=== PATIENT | male | born 1975 | race Caucasian/White ===

== ENCOUNTER → 2017-08-08 09:06 | Outpatient (CLI) | payer BC, SELFPAY ==
[2017-08-08 11:17] LABS: ALB/GLOB Ratio 1.1 RATIO (0.9-2.4); AST(SGOT) 24 U/L (15-37); Alanine Aminotransfer ALT/SGPT 52 U/L (16-61); Albumin, Serum 4.2 g/dL (3.2-5.0); Alkaline Phosphatase 59 U/L (45-117); Anion Gap 8 (5-15); BUN 16 mg/dL (7-18); BUN/Creat Ratio 15.7 RATIO (10-20); Calcium,Total 8.7 mg/dL (8.5-10.1); Chloride 101 mmol/L (98-107); Cholesterol 137 mg/dL (200); Creatinine, Serum 1.02 mg/dL (0.70-1.30); EST Glomerular Filtration Rate 86 mL/min (>60); Est Glom Filt Rate - Afr Amer 103 mL/min (>60); Globulin 3.8 g/dL (2.2-4.2); Glucose 169 mg/dL (74-106); High Density Lipoprotein 32 mg/dL; Potassium 3.8 mmol/L (3.5-5.1); Sodium Level 137 mmol/L (136-145); Thyroid Stim Hormone (TSH) 2.18 uIU/mL (0.358-3.74); Triglycerides 106 mg/dL; Very Low Density Lipoprotein 21 mg/dL (5-40)
== END ==
PROVIDERS: Visit Provider Family Medicine
DX: E11.9 Type 2 diabetes mellitus without complications (principal)
CPT/HCPCS: 36415; 80053; 80061; 84403; 84443

== ENCOUNTER → 2018-09-03 07:39 | Outpatient (CLI) | payer BC, SELFPAY ==
[2018-09-03 10:17] LABS: ALB/GLOB Ratio 1.1 RATIO (0.9-2.4); AST(SGOT) 24 U/L (15-37); Alanine Aminotransfer ALT/SGPT 48 U/L (16-61); Alkaline Phosphatase 51 U/L (45-117); Anion Gap 7 (5-15); BUN 10 mg/dL (7-18); BUN/Creat Ratio 10.7 RATIO (10-20); Calcium,Total 8.2 mg/dL (8.5-10.1); Chloride 105 mmol/L (98-107); Cholesterol 124 mg/dL (200); Creatinine, Serum 0.93 mg/dL (0.70-1.30); EST Glomerular Filtration Rate 94 mL/min (>60); Est Glom Filt Rate - Afr Amer 114 mL/min (>60); Globulin 3.5 g/dL (2.2-4.2); Glucose 135 mg/dL (74-106); High Density Lipoprotein 35 mg/dL; Potassium 3.8 mmol/L (3.5-5.1); Protein, Total 7.5 g/dL (6.4-8.2); Sodium Level 137 mmol/L (136-145); Thyroid Stim Hormone (TSH) 2.04 uIU/mL (0.358-3.74); Triglycerides 127 mg/dL; Very Low Density Lipoprotein 25 mg/dL (5-40)
== END ==
PROVIDERS: Family Provider Family Medicine; PCP Family Medicine; Referring Provider Family Medicine; Visit Provider Family Medicine
DX: E11.9 Type 2 diabetes mellitus without complications (principal)
CPT/HCPCS: 36415; 80053; 80061; 84403; 84443

== ENCOUNTER → 2020-04-05 | Outpatient (CLI) | payer BC, SELFPAY ==
[2020-04-05 10:42] LABS: AST(SGOT) 25 U/L (15-37); Alanine Aminotransfer ALT/SGPT 54 U/L (16-61); Albumin, Serum 3.9 g/dL (3.2-5.0); Alkaline Phosphatase 75 U/L (45-117); Anion Gap 3 (5-15); BUN 12 mg/dL (7-18); BUN/Creat Ratio 12.9 RATIO (10-20); Chloride 107 mmol/L (98-107); Cholesterol 202 mg/dL (200); Creatinine, Serum 0.93 mg/dL (0.70-1.30); EST Glomerular Filtration Rate 94 mL/min (>60); Est Glom Filt Rate - Afr Amer 114 mL/min (>60); Globulin 3.8 g/dL (2.2-4.2); Glucose 236 mg/dL (74-106); High Density Lipoprotein 43 mg/dL; Potassium 4.2 mmol/L (3.5-5.1); Protein, Total 7.7 g/dL (6.4-8.2); Sodium Level 140 mmol/L (136-145); Thyroid Stim Hormone (TSH) 2.81 uIU/mL (0.358-3.74); Triglycerides 156 mg/dL; Very Low Density Lipoprotein 31 mg/dL (5-40)
== END | disposition home or self-care (01) ==
LOC: MFPLAB 08:46
PROVIDERS: PCP Family Medicine; Referring Provider Family Medicine; Visit Provider Family Medicine
DX: E11.9 Type 2 diabetes mellitus without complications (principal)
CPT/HCPCS: 36415; 80053; 80061; 84403; 84443

== ENCOUNTER 2020-07-27 12:03 | Outpatient (CLI) | payer BC, SELFPAY ==
[2020-07-27 12:35] VITALS: BP 119/72; PULSE 83; RESP 16; TEMP 36.6; O2SAT 94; BMI 29.2
[2020-07-27 13:40] VITALS: BP 125/70; PULSE 83; RESP 16; TEMP 36.8; O2SAT 96
[2020-07-27 14:10] VITALS: BP 114/76; PULSE 79; RESP 16; O2SAT 96
[2020-07-27 14:30] VITALS: BP 105/71; PULSE 77; RESP 16; O2SAT 98
[2020-07-27 15:00] VITALS: BP 108/70; PULSE 81; RESP 16; TEMP 36.4; O2SAT 95
[2020-07-27 15:30] VITALS: BP 121/69; PULSE 83; RESP 16; TEMP 36.5; O2SAT 96
== END 2020-07-27 15:34 | disposition home or self-care (01) ==
LOC: MS2OUT 12:03 → MS2 12:04
PROVIDERS: PCP Family Medicine; Referring Provider Nurse Practitioner Acute Care; Visit Provider Nurse Practitioner Acute Care
DX: U07.1 COVID-19 (principal)
CPT/HCPCS: J7050; M0239; Q0245

== ENCOUNTER → 2021-12-12 | Outpatient (CLI) | payer BC, SELFPAY ==
[2021-12-12 10:15] LABS: ALB/GLOB Ratio 1.3 RATIO (0.9-2.4); AST(SGOT) 29 U/L (15-37); Alanine Aminotransfer ALT/SGPT 51 U/L (16-61); Albumin, Serum 4.4 g/dL (3.2-5.0); Alkaline Phosphatase 54 U/L (45-117); Anion Gap 6 (5-15); BUN 17 mg/dL (7-18); BUN/Creat Ratio 17.6 RATIO (10-20); Calcium,Total 9.4 mg/dL (8.5-10.1); Chloride 102 mmol/L (98-107); Cholesterol 157 mg/dL (200); Creatinine, Serum 0.97 mg/dL (0.70-1.30); EST Glomerular Filtration Rate 89 mL/min (>60); Est Glom Filt Rate - Afr Amer 108 mL/min (>60); Globulin 3.5 g/dL (2.2-4.2); Glucose 133 mg/dL (74-106); High Density Lipoprotein 38 mg/dL; Potassium 4.5 mmol/L (3.5-5.1); Protein, Total 7.9 g/dL (6.4-8.2); Sodium Level 136 mmol/L (136-145); Thyroid Stim Hormone (TSH) 2.04 uIU/mL (0.358-3.74); Triglycerides 137 mg/dL; Very Low Density Lipoprotein 27 mg/dL (5-40)
== END | disposition home or self-care (01) ==
LOC: MFPLAB 08:26
PROVIDERS: PCP Family Medicine; Visit Provider Family Medicine
DX: E11.319 Type 2 diabetes mellitus with unspecified diabetic retinopathy without macular edema (principal)
CPT/HCPCS: 36415; 80053; 80061; 84443

== ENCOUNTER → 2023-02-27 | Outpatient (CLI) | payer BC, SELFPAY ==
[2023-02-27 12:39] LABS: ALB/GLOB Ratio 1.2 RATIO (0.9-2.4); AST(SGOT) 23 U/L (15-37); Alanine Aminotransfer ALT/SGPT 53 U/L (16-61); Albumin, Serum 4.3 g/dL (3.2-5.0); Alkaline Phosphatase 79 U/L (45-117); Anion Gap 4 (5-15); BUN 18 mg/dL (7-18); BUN/Creat Ratio 16.8 RATIO (10-20); Calcium,Total 9.4 mg/dL (8.5-10.1); Chloride 102 mmol/L (98-107); Cholesterol 114 mg/dL (200); Creatinine, Serum 1.07 mg/dL (0.70-1.30); EST Glomerular Filtration Rate 79 mL/min (>60); Est Glom Filt Rate - Afr Amer 95 mL/min (>60); Globulin 3.7 g/dL (2.2-4.2); Glucose 106 mg/dL (74-106); High Density Lipoprotein 38 mg/dL; Potassium 4.1 mmol/L (3.5-5.1); Sodium Level 133 mmol/L (136-145); Thyroid Stim Hormone (TSH) 1.45 uIU/mL (0.358-3.74); Triglycerides 98 mg/dL; Very Low Density Lipoprotein 20 mg/dL (5-40)
== END | disposition home or self-care (01) ==
LOC: MTLAB 10:13
PROVIDERS: PCP Family Medicine; Visit Provider Family Medicine
DX: E11.319 Type 2 diabetes mellitus with unspecified diabetic retinopathy without macular edema (principal)
CPT/HCPCS: 36415; 80053; 80061; 84403; 84443

== ENCOUNTER 2024-04-27 07:20 | Outpatient (RCR) | payer BC, SELFPAY | END 2024-05-15 23:59 | LOC: NS 07:20 | PROVIDERS: PCP Family Medicine; Referring Provider Nurse Practitioner Family; Visit Provider Nurse Practitioner Family | DX: Z71.3 Dietary counseling and surveillance (principal); E11.319 Type 2 diabetes mellitus with unspecified diabetic retinopathy without macular edema | CPT/HCPCS: 97802 ==

== ENCOUNTER → 2025-03-21 | Outpatient (CLI) | payer BC, SELFPAY ==
--- OUTSIDE RECORDS SUMMARY | 2025-03-21 09:12 | XMS RPT_ITS | CCD ---
Author Organization [facility] Care Team Providers Care [employer] D[employer] Server Name Role Phone Roz FURNACE BRAZER, Angela Attending Unavailable Roz FURNACE BRAZER, Angela Referring Unavailable Renetta Freeman Primary Care Unavailable Roz FURNACE BRAZER, Angela Attending Unavailable Roz FURNACE BRAZER, Angela Referring Unavailable Renetta Freeman Primary Care Unavailable Renetta Freeman MD Primary Care Provider RENETTA FREEMAN Primary Care Unavailkaylie e RENETTA FREEMAN Primary Care Unavailabl e Medications Current Medications Medication Drug Class(es) Dates Sig (Normalized) Sig (Original) atorvastatin 40 mg oral tablet (4 sources) HMG-CoA Reductase Inhibitor Start: 05-19-2023 take 1 tablet by mouth once atorvastatin (LIPITOR) 40 mg tablet Take 1 tablet by mouth every afternoon. 05/19/2023 Active Start: 07-25-2020 take 20 mg by mouth once daily Atorvastatin Active 20 MG PO DAILY July 25, 2020 1:00am empagliflozin 25 mg oral tablet (4 sources) Sodium-Glucose Cotransporter 2 Inhibitor Start: 05-19-2023 take 1 tablet by mouth once daily in the morning JARDIANCE 25 mg tablet Take 25 mg by mouth every morning. 05/19/2023 Active Start: 07-27-2020 take 25 mg by mouth once daily Empagliflozin Active 25 MG PO DAILY July 27, 2020 1:00am lisinopril 10 mg oral tablet (4 sources) Angiotensin Converting Enzyme Inhibitor Start: 05-19-2023 take 1 tablet by mouth once lisinopril (ZESTRIL) 10 mg tablet Take 1 tablet by mouth every afternoon. 05/19/2023 Active Start: 07-25-2020 take 10 mg by mouth once daily Lisinopril Active 10 MG PO DAILY July 25, 2020 1:00am 24 hr metFORMIN hydrochloride 500 mg extended release oral tablet (4 sources) Biguanide Start: 02-27-2023 take 2 tablets by mouth every hour metFORMIN ER (GLUCOPHAGE XR) 500 mg 24 hr tablet Take 2 tablets by mouth every afternoon. 02/27/2023 Active Start: 07-25-2020 take 2000 mg by mouth once marine ly Metformin Active 2000 MG PO DAILY July 25, 2020 1:00am ONE DAILY MULTI-VITAMIN TAB (2 sources) Start: 03-11-2006 ONE DAILY MULTI-VITAMIN TAB Take one(1) tablet daily. 0 03/11/2006 Active SITagliptin 100 mg oral tablet (2 sources) Dipeptidyl Peptidase 4 Inhibitor Start: 07-27-2020 take 100 mg by mouth once daily Sitagliptin Phosphate Active 100 MG PO DAILY July 27, 2020 1:00am TRUE METRIX GLUCOSE METER (2 sources) Start: 02-27-2023 TRUE METRIX GL UCOSE METER as directed. 02/27/2023 Active TRULICITY 3 mg/0.5 mL pen injector (2 sources) Start: 05-21-2023 TRULICITY 3 mg /0.5 mL pen injector one time a week. 05/21/2023 Active Problems Active Problems Problem Classification Problem Date Documented Da te Episodic/Chronic Diabetes mellitus without complication (2 sources) Type 2 diabetes mellitus; Translations: [Type 2 diabetes mellitus without complications] 07-25-2020 Chronic Other congenital anomalies (2 sources) Congenital pes planus; Translations: [Congenital pes planus, unspecified foot] Onset: 10-23-2007 12-25-2023 Chronic Other upper respiratory infections (1 source) Viral upper respiratory tract infection; Translations: [Acute upper respiratory infection, unspecified] 06-02-2024 Episodic Residual codes; unclassified (2 sources) History finding; Translations: [Other specified health status] 07-25-2020 Episodic Residual codes; unclassified (2 sources) No family history of; Translations: [Other specified health status] 07-25-2020 Episodic Viral infection (2 sources) Disease caused by 2019-nCoV; Translations: [COVID-19] 07-25-2020 Episodic Past or Other Problems Problem Classification Problem Date Documented Da te Episodic/Chronic Other connective tissue disease (2 sources) Plantar fascial fibromatosis; Translations: [Plantar fascial fibromatosis] Onset: 10-23-2007 Resolved: 10-11-2009 10-11-2009 Episodic Results Test Name Value Interpretation Reference Range Facility [facility] 06-02-2024 CNOV Office Visit ([facility]) -------- ULICES BHAKTA ([id number]) 1975 M Date Time Provider Department 06/02/24 11:30 AM MARY LOU NUNU Brennan [facility] During your visit today, we recorded the following information about you: Temperature Pulse Respiration Blood pressure 97.7 degrees 90/minute 16/minute 122/80 Weight 78 kg Nunu Barreto PA-C 06/02/2024 12:59 PM Signed This note was created using [employer]. Subjective Ulices Bhakta is a 49 year old male. HPI Patient presents with a chief complaint of cough chest congestion and feeling feverish over the past 2 days. His coworker texted him today saying he had influenza. Patient is type II diabetic. Also history of hypertension and high cholesterol. No chest pain or shortness of breath. Has had nasal congestion. No ear pain. No vomiting or diarrhea. Review of Systems Constitutional: Positive for fatigue and fever. HENT: Positive for congestion and rhinorrhea. Negative for ear pain. Respiratory: Positive for cough. Negative for shortness of breath. Cardiovascular: Negative. Gastrointestinal: Negative. Musculoskeletal: Positive for myalgias. Neurological: Positive for headaches. All other systems reviewed and are negative. 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 TRUE METRIX GLUCOSE TEST STRIP test strip use 1 (ONE) strip DAILY TRUE METRIX GLUCOSE METER as directed. TRULICITY 3 mg/0.5 mL pen injector one time a week. JARDIANCE 25 mg tablet Take 25 mg by mouth every morning. lisinopril (ZESTRIL) 10 mg tablet Take 1 tablet by mouth every afternoon. metFORMIN ER (GLUCOPHAGE XR) 500 mg 24 hr tablet Take 2 tablets by mouth every afternoon. ONE DAILY MULTI-VITAMIN TAB Take one(1) tablet daily. 0 No current facility-administe red medications for this visit. PAST SURGICAL HISTORY Procedure Laterality Date TONSILLECTOMY AND ADENOIDECTOMY T/A (under age 12 years) VASECTOMY UNI/BI SPX W/POSTOP SEMEN EXAMS 2007 FAMILY HISTORY Problem Relation Age of Onset Hypertension Mother Breast Cancer Maternal Grandmother Lung cancer Breast Cancer Maternal Aunt Cancer Maternal Uncle testicular Ischemic Heart Disease Maternal Grandfather Social History Tobacco Use Smoking status: Never Smokeless tobacco: Never Substance Use Topics Alcohol use: No Drug use: No Objective BP 122/80 Pulse 90 Temp 36.5 ?C (97.7 ?F) (Tympanic) Resp 16 Wt 78 kg (171 lb 15.3 oz) SpO2 97% Physical Exam Vitals reviewed. Constitutional: Appearance: Normal appearance. HENT: Head: Normocephalic and atraumatic. Right Ear: Tympanic membrane, ear canal and external ear normal. Left Ear: Tympanic membrane, ear canal and external ear normal. Nose: Congestion present. Mouth/Throat: Mouth: Mucous membranes are moist. Pharynx: Oropharynx is clear. Cardiovascular: Rate and Rhythm: Normal rate and regular rhythm. Heart sounds: Normal heart sounds. Pulmonary: Effort: Pulmonary effort is normal. Breath sounds: Normal breath sounds. Musculoskeletal: Cervical back: Neck supple. Skin: General: Skin is warm and dry. Findings: No rash. Neurological: Mental Status: He is alert. Assessment and Plan ASSESSMENT/PLAN: 1. Viral URI with cough - ICD9: 465.9, ICD10: J06.9 - Discussed viral etiology and rationale for treatment. - Symptomatic treatment with prn analgesia - Supportive care with fluids and rest -Rapid PCR influenza negative. COVID test pending. If positive he is in the window for antivirals and would be considered high risk being diabetic. - INFLUENZA AANDB MOLECULAR (POC) - COVID AND INFLUENZA A/B AND RSV PCR, ROUTINE PRINCE Ba-C Allergies As of Date: 06/02/2024 (No Known Allergies) Date Reviewed: 06/02/2024 Reviewed by: Lurdes Segal LPN - Fully Assessed Reason for Visit: Cold [4225] Cmt: Entered by patient Cough [28] Cmt: Cough, congestion and fever x 2 days Primary Visit Diagnosis:Viral URI with cough [J06.9] Order(s):INFLUENZA AANDB MOLECULAR (POC) [[id number]] Order #: [id number]. #:[id number] COVID AND INFLUENZA A/B AND RSV PCR, ROUTINE [SQCVFLRS] Order #: [id number]. #:[id number] Prescriptions as of 06/04/2024 - atorvastatin (LIPITOR) 40 mg tablet Take 1 tablet by mouth every afternoon. - TRUE METRIX GLUCOSE TEST STRIP test strip use 1 (ONE) strip DAILY - TRUE METRIX GLUCOSE METER as directed. - TRULICITY 3 mg/0.5 mL pen injector one time a week. - JARDIANCE 25 mg tablet Take 25 mg by mouth every morning. - lisinopril (ZESTRIL) 10 mg tablet Take 1 tablet by mouth every afternoon. - metFORMIN ER (GLUCOPHAGE XR) 500 mg 24 hr tablet Take 2 tablets by mouth every afternoon. - ONE DAILY MULTI-VIT (more content not included)... Normal [facility]02[facility]20[facility] -------- ULICES BHAKTA ([id number]) 1975 Date Time Provider Department 06/02/24 CARMENZA SALCIDO [facility] During your visit today, we recorded the following information about you: Carmenza Salcido APRN.[facility] 06/02/2024 7:55 PM Signed COVID negative Influenza negative RSV POSITIVE Supportive measures, rest, fluids Allergies As of Date: 06/02/2024 (No Known Allergies) Date Reviewed: 06/02/2024 Reviewed by: Lurdes Segal LPN - Fully Assessed Reason for Visit: Results [95] Prescriptions as of 06/02/2024 - atorvastatin (LIPITOR) 40 mg tablet Take 1 tablet by mouth every afternoon. - TRUE METRIX GLUCOSE TEST STRIP test strip use 1 (ONE) strip DAILY - TRUE METRIX GLUCOSE METER as directed. - TRULICITY 3 mg/0.5 mL pen injector one time a week. - JARDIANCE 25 mg tablet Take 25 mg by mouth every morning. - lisinopril (ZESTRIL) 10 mg tablet Take 1 tablet by mouth every afternoon. - metFORMIN ER (GLUCOPHAGE XR) 500 mg 24 hr tablet Take 2 tablets by mouth every afternoon. - ONE DAILY MULTI-VITAMIN TAB Take one(1) tablet daily. Problem List As Of Date 06/02/2024 Noted Resolved CONGENITAL PES PLANUS [Q66.50] 10/23/2007 PLANTAR Fasciitis [M72.2] 10/23/2007 10/11/2009 Encounter Status:Closed by CARMENZA SALCIDO on 06/02/[address] [facility] COVID AND INFLUENZA A/B AND RSV PCR, ROUTINEon 06-02-2024 SARS-CoV-2 (COVID-19) RNA PAU+probe Ql (Unsp spec) SARS-COV-2 (AGENT OF COVID-19) RNA: Not detected INFLUENZA A RNA: Not detected INFLUENZA B RNA: Not detected RESPIRATORY SYNCYTIAL VIRUS (RSV) RNA: Detected Abnormal [facility] Comment on above: Performed By: #### C VFLRS #### [facility] CLIA [id number] [address] [place] [address] [place] INFLUENZA A&B MOLECULAR (POC )on 06-02-2024 Flu A (POCT) Negative Negative [facility] Flu B (POCT) Negative Negative [facility] Procedural Control Valid [facility] Location:[facility], [facility], [place], [address] [facility] POINT OF CARE [facility] CNOVon 06-13-2023 CNOV Office Visit ([facility]) -------- ULICES BHAKTA ([id number]) 1975 M Date Time Provider Department 06/13/23 7:30 AM LAURY BECKER [facility] During your visit today, we recorded the following information about you: Temperature Pulse Respiration Blood pressure 97.9 degrees 104/minute 16/minute 102/72 Weight 77.8 kg Laury Becker PA 06/13/2023 7:32 AM Signed This note was created using [employer]. Subjective Ulices Bhakta is a 48 year old male. HPI 48-year-old male presents for ear pain, cough. Patient states he was sick earlier this week with congestion, cough, fever. He states all symptoms resolved other than cough. He started getting bilateral ear pain yesterday. No drainage from the ears. Has history of ear infections as a child. No vomiting or diarrhea. No continued fevers. No other complaint. 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 MEDICATIONS atorvastatin (LIPITOR) 40 mg tablet Take 1 tablet by mouth every afternoon. TRUE METRIX GLUCOSE TEST STRIP test strip use 1 (ONE) strip DAILY TRUE METRIX GLUCOSE METER as directed. TRULICITY 3 mg/0.5 mL pen injector one time a week. JARDIANCE 25 mg tablet Take 25 mg by mouth every morning. lisinopril (ZESTRIL) 10 mg tablet Take 1 tablet by mouth every afternoon. metFORMIN ER (GLUCOPHAGE XR) 500 mg 24 hr tablet Take 2 tablets by mouth every afternoon. ONE DAILY MULTI-VITAMIN TAB Take one(1) tablet daily. amoxicillin (AMOXIL) 875 mg tablet Take 1 tablet by mouth two times a day for 7 days. FAMILY HISTORY Problem Relation Age of Onset Hypertension Mother Breast Cancer Maternal Grandmother Lung cancer Breast Cancer Maternal Aunt Cancer Maternal Uncle testicular Ischemic Heart Disease Maternal Grandfather Social History Tobacco Use Smoking status: Never Smokeless tobacco: Never Substance Use Topics Alcohol use: No Drug use: No Review of Systems Constitutional: Negative for chills and fever. HENT: Positive for ear pain. Negative for congestion and sore throat. Respiratory: Positive for cough. Negative for shortness of breath. Gastrointestinal: Negative for diarrhea and vomiting. Objective BP 102/72 Pulse 104 Temp 36.6 ?C (97.9 ?F) (Left Tympanic) Resp 16 Wt 77.8 kg (171 lb 9.6 oz) SpO2 98% Physical Exam Vitals and nursing note reviewed. Constitutional: General: He is not in acute distress. Appearance: Normal appearance. He is not toxic-appearing. HENT: Right Ear: A middle ear effusion is present. Tympanic membrane is erythematous and bulging. Left Ear: A middle ear effusion is present. Nose: Nose normal. Mouth/Throat: Mouth: Mucous membranes are moist. Eyes: Conjunctiva/sclera : Conjunctivae normal. Cardiovascular: Rate and Rhythm: Normal rate and regular rhythm. Pulmonary: Effort: Pulmonary effort is normal. Breath sounds: Normal breath sounds. Skin: General: Skin is warm and dry. Neurological: Mental Status: He is alert. Assessment and Plan ASSESSMENT/PLAN: 1. Acute otitis media, right - ICD9: 382.9, ICD10: H66.91 - Will begin treatment with Amoxicillin for 7 days - Supportive care with plenty of fluids, rest, and analgesia prn. - may contineu OTC medications as needed cough/congestion. Recommend Flonase for mid ear effusions/congesti on Diagnosis and treatment plan were discussed and questions were answered to the patient's satisfaction. Pt acknowledged understanding of concepts and follow up plan. Specific signs and symptoms that would indicate the need for higher level of care were discussed in detail warranting prompt ER evaluation. PRINCE Martin Allergies As of Date: 06/13/2023 (No Known Allergies) Date Reviewed: 06/13/2023 Reviewed by: Petra Perdue MA - Fully Assessed Reason for Visit: Ear Pain [817] Cmt: KIRSTY ears x 1 day with cough x 4 days Primary Visit Diagnosis:Acute otitis media, right [H66.91] Order(s):amoxicill in (AMOXIL) 875 mg tabletTake 1 tablet by mouth two times a day for 7 days.Disp: 14 tabletRfl: 0 Prescriptions as of 06/13/2023 - atorvastatin (LIPITOR) 40 mg tablet Take 1 tablet by mouth every afternoon. - TRUE METRIX GLUCOSE TEST STRIP test strip use 1 (ONE) strip DAILY - TRUE METRIX GLUCOSE METER as directed. - TRULICITY 3 mg/0.5 mL pen injector one time a week. - JARDIANCE 25 mg tablet Take 25 mg by mouth every morning. - lisinopril (ZESTRIL) 10 mg tablet Take 1 tablet by mouth every afternoon. - metFORMIN ER (GLUCOPHAGE XR) 500 mg 24 hr tablet Take 2 tablets by mouth every afternoon. - amoxicillin (AMOXIL) 875 mg tablet Take 1 tablet by mouth two times a day for 7 days. (more content not included)... Normal [facility] Basophil percentageOrdered B y: Manav Freeman on 02-27-2023 Bilirubin [Mass/Vol] 0.80 mg/dL 0.20-1.00 [facility] Comment on above: For patients on eltr ombopag therapy, use of Dimension [place] TBIL is not recommended. Chloride [Moles/Vol] 102 mmol/L 98-107 [facility] Cholesterol [Mass/Vol] 114 mg/dL <200 [facility] Comment on above: <200 mg/dL Desirable 200-240 mg/dL Borderline >240 mg/dL High Risk Glucose [Mass/Vol] 106 mg/dL 74-106 [facility] Comment on above: Fasting Glucose resu lt from 100 to 125 mg/dL suggests IMPAIRED HOMEOSTASIS per A.D.A. criteria. Potassium [Moles/Vol] 4.1 mmol/L 3.5-5.1 [facility] Protein [Mass/Vol] 8.0 g/dL 6.4-8.2 [facility] Sodium [Moles/Vol] 133 mmol/L 136-145 [facility] Testosterone [Mass/Vol] 286.91 ng/dL [facility] Comment on above: CENTRAL 90% REFERENC E RANGES MALE AGE <50 197.44 - 669.58 ng/dL MALE AGE > or = 50 187.72 - 684.19 ng/dL FEMALE AGE <50 8.38 - 35.01 ng/dL FEMALE AGE > or = 50 <7.00 - 35.92 ng/dL Effective as of 7/27/21 Triglyceride [Mass/Vol] 98 mg/dL <199 [facility] Comment on above: The drugs N-Acetylcy steine and Metamizole may falsely depress this assay.Serum Triglycerides Reference Interval Normal <150 mg/dL Borderline high 150 - 199 mg/dL High 200 - 499 mg/dL Very High > or = 500 mg/dL Laboratory - Chemistry and C hemistry - challengeOrdered By: Manav Freeman on 02-27-2023 ALP [Catalytic activity/Vol] 79 U/L 45-117 [facility] ALT [Catalytic activity/Vol] 53 U/L 16-61 [facility] CO2 [Moles/Vol] 27.0 mmol/L 21.0-32.0 [facility] Globulin (S) [Mass/Vol] 3.7 g/dL 2.2-4.2 [facility] Urea nitrogen/Creatinine [Mass ratio] 16.8 mg/mg 10-20 [facility] No Panel InformationOrdered By: Manav Freeman on 02-27-2023 Estimated GFR (MDRD) Amer 95 mL/min >60 [facility] Comment on above: GFR Calc Estimated GFR (MDRD) Non-Af Amer 79 mL/min >60 [facility] Comment on above: Non- GFR Calc Thyroid Stimulating Hormone (TSH) 1.45 uIU/mL 0.358-3.74 [facility] Serum or plasma albumin penelope urement (mass/volume)Ordered By: Manav Freeman on 02-27-2023 Albumin [Mass/Vol] 4.3 g/dL 3.2-5.0 [facility] Serum or plasma albumin/glob ulin mass ratioOrdered By: Manav Freeman on 02-27-2023 Albumin/Globulin [Mass ratio] 1.2 {ratio} 0.9-2.4 [facility] Serum or plasma calcium penelope urement (mass/volume)Ordered By: Manav Freeman on 02-27-2023 Calcium [Mass/Vol] 9.4 mg/dL 8.5-10.1 [facility] Serum or plasma cholesterol in HDL measurement (mass/volume)Ordered By: Manav Freeman on 02-27-2023 Cholesterol in HDL [Mass/Vol] 38 mg/dL >40 [facility] Comment on above: The drugs N-Acetylcy steine and Metamizole may falsely depress this assay. Reference Range HDL <40 mg/dL Low HDL Cholesterol HDL >or= 60 mg/dL High HDL Cholesterol Serum or plasma cholesterol in VLDL measurement (mass/volume)Ordered By: Manav Freeman on 02-27-2023 Cholesterol in VLDL [Mass/Vol] 20 mg/dL 5-40 [facility] Serum or plasma creatinine m easurement (mass/volume)Ordered By: Manav Freeman on 02-27-2023 Creatinine [Mass/Vol] 1.07 mg/dL 0.70-1.30 [facility] Comment on above: The validity of the calculated GFR & GFRAA in patients over 70 years has not been determined. Clinical correlation is essential. Serum or plasma low density lipoprotein (LDL) cholesterol measurement (mass/volume)Ordered By: Manav Freeman on 02-27-2023 Cholesterol in LDL [Mass/Vol] 56 mg/dL 0-130 [facility] Serum or plasma urea nitroge n measurement (mass/volume)Ordered By: Manav Freeman on 02-27-2023 Urea nitrogen [Mass/Vol] 18 mg/dL 7-18 [facility] Thin prep Papanicolaou smear with manual screeningOrdered By: Manav Freeman on 02-27-2023 Thin prep Papanicolaou smear with manual screening 23 U/L 15-37 [facility] Thin prep Papanicolaou smear with manual screening 4 5-15 [facility] Basophil percentageon 2021 Bilirubin [Mass/Vol] 0.60 mg/dL 0.20-1.00 [facility] Work Phone: Comment on above: For patients on eltr ombopag therapy, use of Dimension [place] TBIL is not recommended. Chloride [Moles/Vol] 102 mmol/L 98-107 [facility] Work Phone: Cholesterol [Mass/Vol] 157 mg/dL <200 [facility] Work Phone: Comment on above: <200 mg/dL Desirable 200-240 mg/dL Borderline >240 mg/dL High Risk Glucose [Mass/Vol] 133 mg/dL 74-106 [facility] Work Phone: Comment on above: Fasting Glucose resu lt greater than or equal to 126 mg/dL suggests DIABETES MELLITUS per A.D.A. criteria. Potassium [Moles/Vol] 4.5 mmol/L 3.5-5.1 [facility] Work Phone: Protein [Mass/Vol] 7.9 g/dL 6.4-8.2 [facility] Work Phone: Sodium [Moles/Vol] 136 mmol/L 136-145 [facility] Work Phone: Triglyceride [Mass/Vol] 137 mg/dL <199 [facility] Work Phone: Comment on above: The drugs N-Acetylcy steine and Metamizole may falsely depress this assay.Serum Triglycerides Reference Interval Normal <150 mg/dL Borderline high 150 - 199 mg/dL High 200 - 499 mg/dL Very High > or = 500 mg/dL Laboratory - Chemistry and C hemistry - challengeon 12-12-2021 ALP [Catalytic activity/Vol] 54 U/L 45-117 [facility] Work Phone: ALT [Catalytic activity/Vol] 51 U/L 16-61 [facility] Work Phone: CO2 [Moles/Vol] 28.0 mmol/L 21.0-32.0 [facility] Work Phone: Globulin (S) [Mass/Vol] 3.5 g/dL 2.2-4.2 [facility] Work Phone: Urea nitrogen/Creatinine [Mass ratio] 17.6 mg/mg 10-20 [facility] Work Phone: No Panel Informationon 12-12 Estimated GFR (MDRD) Amer 108 mL/min >60 [facility] Work Phone: Comment on above: GFR Calc Estimated GFR (MDRD) Non-Af Amer 89 mL/min >60 [facility] Work Phone: Comment on above: Non- GFR Calc Thyroid Stimulating Hormone (TSH) 2.04 uIU/mL 0.358-3.74 [facility] Work Phone: Serum or plasma albumin penelope urement (mass/volume)on 12-12-2021 Albumin [Mass/Vol] 4.4 g/dL 3.2-5.0 [facility] Work Phone: Serum or plasma albumin/glob ulin mass ratioon 12-12-2021 Albumin/Globulin [Mass ratio] 1.3 {ratio} 0.9-2.4 [facility] Work Phone: Serum or plasma calcium penelope urement (mass/volume)on 12-12-2021 Calcium [Mass/Vol] 9.4 mg/dL 8.5-10.1 [facility] Work Phone: Serum or plasma cholesterol in HDL measurement (mass/volume)on 12-12-2021 Cholesterol in HDL [Mass/Vol] 38 mg/dL >40 [facility] Work Phone: Comment on above: The drugs N-Acetylcy steine and Metamizole may falsely depress this assay. Reference Range HDL <40 mg/dL Low HDL Cholesterol HDL >or= 60 mg/dL High HDL Cholesterol Serum or plasma cholesterol in VLDL measurement (mass/volume)on 12-12-2021 Cholesterol in VLDL [Mass/Vol] 27 mg/dL 5-40 [facility] Work Phone: Serum or plasma creatinine m easurement (mass/volume)on 12-12-2021 Creatinine [Mass/Vol] 0.97 mg/dL 0.70-1.30 [facility] Work Phone: Comment on above: The validity of the calculated GFR & GFRAA in patients over 70 years has not been determined. Clinical correlation is essential. Serum or plasma low density lipoprotein (LDL) cholesterol measurement (mass/volume)on 12-12-2021 Cholesterol in LDL [Mass/Vol] 92 mg/dL 0-130 [facility] Work Phone: Serum or plasma urea nitroge n measurement (mass/volume)on 12-12-2021 Urea nitrogen [Mass/Vol] 17 mg/dL 7-18 [facility] Work Phone: Thin prep Papanicolaou smear with manual screeningon 12-12-2021 Thin prep Papanicolaou smear with manual screening 29 U/L 15-37 [facility] Work Phone: Thin prep Papanicolaou smear with manual screening 6 5-15 [facility] Work Phone: Vital Signs Date Time Vital Sign Value Performing Clinician Alysa zacarias 06-02-2024 11:28-0500 Body temperature 97.7 [degF] Nunu Athy PA-C Work Phone: [facility] 06-02-2024 11:28-0500 Body weight 78 kg Nunu Athy PA-C Work Phone: [facility] 06-02-2024 11:28-0500 Diastolic blood pressure 80 mm[Hg] Nunu Athy PA-C Work Phone: [facility] 06-02-2024 11:28-0500 Heart rate 90 /min Nunu Athy PA-C Work Phone: [facility] 06-02-2024 11:28-0500 Respiratory rate 16 /min Nunu Athy PA-C Work Phone: [facility] 06-02-2024 11:28-0500 SaO2% (BldA) [Mass fraction] 97 % Nunu Athy PA-C Work Phone: [facility] 06-02-2024 11:28-0500 Systolic blood pressure 122 mm[Hg] Nunu Athy PA-C Work Phone: [facility] Encounters Encounter Date Encounter Type Care Provider Facility Start: 06-02-2024 End: 06-02-2024 Telephone encounter Carmenza Salcido APRN.CNP Work Phone: [facility] Comment on above: Results Start: 06-02-2024 End: 06-02-2024 ambulatory RENETTA FREEMAN Facility:[facility] Start: 06-02-2024 End: 06-02-2024 Patient encounter procedure Nunu Barreto PA-C Work Phone: [facility] Comment on above: Viral URI with cough (Primary Dx) Start: 06-01-2024 ambulatory Angela Courtney FURNACE BRAZER Facility :[facility] Start: 04-27-2024 End: 05-15-2024 ambulatory Angela Roz FURNACE BRAZER Facility:[facility] Start: 06-13-2023 End: 06-13-2023 ambulatory RENETTA FREEMAN Facility:[facility] Start: 02-27-2023 End: 02-27-2023 ambulatory [facility] Work Phone: Start: 02-27-2023 End: 02-27-2023 [facility] Work Phone: Start: 12-12-2021 End: 12-12-2021 Patient encounter procedure [facility] Family Procedures Date Procedure Procedure Detail Performing Clinician Start: 06-02-2024 INFLUENZA A&B MOLECU LAR (POC) Nunu Barreto PA-C Work Phone: Start: 10-16-2009 Lipid 1996 panel - S joseph or Plasma Nunu Barreto PA-C Work Phone: Plan of Treatment Date Care Activity Detail Author Start: 03-13-2032 Urine microalbumin profile DTaP,Tdap,Td Vaccine (2 - Td or Tdap) [facility] Start: 02-15-2024 Covid-19 Vaccine ( season) Covid-19 Vaccine ( season) [facility] Start: 02-15-2024 Influenza vaccination Influenza Vaccine (#1) [facility] Start: 2021 Diabetes Screening Diabetes Screening [facility] Start: 2021 Screening for malignant neoplasm of colon [facility] Start: 10-16-2014 Lipid panel Lipid Screening [facility] Start: 1995 Hepatitis B Vaccine (1 of 3 - 19+ 3-dose series) Hepatitis B Vaccine (1 of 3 - 19+ 3-dose series) [facility] Start: 1994 Anxiety Screening Anxiety Screening [facility] Start: 1994 Depression Screening Depression Screening [facility] Start: 1994 Hepatitis C screening Hepatitis C Screening [facility] Start: 1994 HIV screening HIV Screening [facility] COVID & INFLUENZA A/ B & RSV PCR, ROUTINE COVID & INFLUENZA A/B & RSV PCR, ROUTINE Microbiology Routine Viral URI with cough 06/02/2024 12:01 PM EST [facility] Work Phone: Immunizations Immunization Date Immunization Notes Care Provider Timur meyer 03-16-2019 influenza virus vacc ine, unspecified formulation Nunu Barreto PA-C Work Phone: [facility] Payers Date Payer Category Payer Self-pay [id number] 2009 Unknown [employer] PPO [id number] 2009-Present [phone] [id number] [place] [address] PPO [id number] 2009 Unknown [id number] Unknown [id number] Unknown [id number] Social History Date Type Detail Facility [facility]: [facility] Start: 1975 Sex Assigned At Male [facility] Start: 06-13-2023 [facility] tobacco [facility] Start: 06-13-2023 Tobacco use and exposure Smokeless tobacco non-user [facility] Start: 06-02-2024 Alcoholic beverage intake Current non-drinker of alcohol (finding) [facility] Start: 06-02-2024 History of Social function [facility] Start: 06-02-2024 Tobacco use panel [facility] Start: 1975 Sex assigned at Not on file [facility] Medical Equipment Procedure Code Equipment Code Equipment Origin al Text Equipment Identifier Dates use 1 (ONE) stri p DAILY Start: 02-27-2023 Telephone encounter Note 06-02-2024 Telephone Encounter - Carmenza Salcido APRN.CNP - 06/02/2024 7:54 PM EST Note Date & Type Note Facility 06-02-2024 Telephone encounter Note COVID negative Influenza negative RSV POSITIVE Supportive measures, rest, fluids [facility] Work Phone: Note 06-02-2024 Telephone Encounter - Carmenza Salcido APRN.CNP - 06/02/2024 7:54 PM EST Note Date & Type Note Facility 06-02-2024 Miscellaneous Notes Formattin g of this note might be different from the original. COVID negative Influenza negative RSV POSITIVE Supportive measures, rest, fluids documented in this encounter [facility] Progress note 06-02-2024 Note Date & Type Note Facility 06-02-2024 Note HNO ID: [id number] Author: NUNU BARRETO PA-C Service: ? Author Type: Physician Cotton Washer Type: Progress Notes Filed: 06/02/2024 12:59 Note Text: This note was created using [employer]. Subjective Ulices Bhakta is a 49 year old male. HPI Patient presents with a chief complaint of cough chest congestion and feeling feverish over the past 2 days. His coworker texted him today saying he had influenza. Patient is type II diabetic. Also history of hypertension and high cholesterol. No chest pain or shortness of breath. Has had nasal congestion. No ear pain. No vomiting or diarrhea. Review of Systems Constitutional: Positive for fatigue and fever. HENT: Positive for congestion and rhinorrhea. Negative for ear pain. Respiratory: Positive for cough. Negative for shortness of breath. Cardiovascular: Negative. Gastrointestinal: Negative. Musculoskeletal: Positive for myalgias. Neurological: Positive for headaches. All other systems reviewed and are negative. 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 TRUE METRIX GLUCOSE TEST STRIP test strip use 1 (ONE) strip DAILY TRUE METRIX GLUCOSE METER as directed. TRULICITY 3 mg/0.5 mL pen injector one time a week. JARDIANCE 25 mg tablet Take 25 mg by mouth every morning. lisinopril (ZESTRIL) 10 mg tablet Take 1 tablet by mouth every afternoon. metFORMIN ER (GLUCOPHAGE XR) 500 mg 24 hr tablet Take 2 tablets by mouth every afternoon. ONE DAILY MULTI-VITAMIN TAB Take one(1) tablet daily. 0 No current facility-administered medications for this visit. PAST SURGICAL HISTORY Procedure Laterality Date TONSILLECTOMY AND ADENOIDECTOMY T/A (under age 12 years) VASECTOMY UNI/BI SPX W/POSTOP SEMEN EXAMS 2007 FAMILY HISTORY Problem Relation Age of Onset Hypertension Mother Breast Cancer Maternal Grandmother Lung cancer Breast Cancer Maternal Aunt Cancer Maternal Uncle testicular Ischemic Heart Disease Maternal Grandfather Social History Tobacco Use Smoking status: Never Smokeless tobacco: Never Substance Use Topics Alcohol use: No Drug use: No Objective BP 122/80 Pulse 90 Temp 36.5 ?C (97.7 ?F) (Tympanic) Resp 16 Wt 78 kg (171 lb 15.3 oz) SpO2 97% Physical Exam Vitals reviewed. Constitutional: Appearance: Normal appearance. HENT: Head: Normocephalic and atraumatic. Right Ear: Tympanic membrane, ear canal and external ear normal. Left Ear: Tympanic membrane, ear canal and external ear normal. Nose: Congestion present. Mouth/Throat: Mouth: Mucous membranes are moist. Pharynx: Oropharynx is clear. Cardiovascular: Rate and Rhythm: Normal rate and regular rhythm. Heart sounds: Normal heart sounds. Pulmonary: Effort: Pulmonary effort is normal. Breath sounds: Normal breath sounds. Musculoskeletal: Cervical back: Neck supple. Skin: General: Skin is warm and dry. Findings: No rash. Neurological: Mental Status: He is alert. Assessment and Plan ASSESSMENT/PLAN: 1. Viral URI with cough - ICD9: 465.9, ICD10: J06.9 - Discussed viral etiology and rationale for treatment. - Symptomatic treatment with prn analgesia - Supportive care with fluids and rest -Rapid PCR influenza negative. COVID test pending. If positive he is in the window for antivirals and would be considered high risk being diabetic. - INFLUENZA AANDB MOLECULAR (POC) - COVID AND INFLUENZA A/B AND RSV PCR, ROUTINE Nunu Barreto PA-C [facility] History of Present illness Narrative 06-02-2024 Nunu Barreto PA-C - 06/02/2024 12:56 PM EST Note Date & Type Note Facility 06-02-2024 History of Presen t illness Narrative This note was created using [employer]. Subjective Ulices Bhakta is a 49 year old male. HPI Patient presents with a chief complaint of cough chest congestion and feeling feverish over the past 2 days. His coworker texted him today saying he had influenza. Patient is type II diabetic. Also history of hypertension and high cholesterol. No chest pain or shortness of breath. Has had nasal congestion. No ear pain. No vomiting or diarrhea. Review of Systems Constitutional: Positive for fatigue and fever. HENT: Positive for congestion and rhinorrhea. Negative for ear pain. Respiratory: Positive for cough. Negative for shortness of breath. Cardiovascular: Negative. Gastrointestinal: Negative. Musculoskeletal: Positive for myalgias. Neurological: Positive for headaches. All other systems reviewed and are negative. 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 TRUE METRIX GLUCOSE TEST STRIP test strip use 1 (ONE) strip DAILY TRUE METRIX GLUCOSE METER as directed. TRULICITY 3 mg/0.5 mL pen injector one time a week. JARDIANCE 25 mg tablet Take 25 mg by mouth every morning. lisinopril (ZESTRIL) 10 mg tablet Take 1 tablet by mouth every afternoon. metFORMIN ER (GLUCOPHAGE XR) 500 mg 24 hr tablet Take 2 tablets by mouth every afternoon. ONE DAILY MULTI-VITAMIN TAB Take one(1) tablet daily. 0 No current facility-administered medications for this visit. PAST SURGICAL HISTORY Procedure Laterality Date TONSILLECTOMY & ADENOIDECTOMY <AGE 12 T/A (under age 12 years) VASECTOMY UNI/BI SPX W/POSTOP SEMEN EXAMS 2007 FAMILY HISTORY Problem Relation Age of Onset Hypertension Mother Breast Cancer Maternal Grandmother Lung cancer Breast Cancer Maternal Aunt Cancer Maternal Uncle testicular Ischemic Heart Disease Maternal Grandfather Social History Tobacco Use Smoking status: Never Smokeless tobacco: Never Substance Use Topics Alcohol use: No Drug use: No Objective BP 122/80 Pulse 90 Temp 36.5 C (97.7 F) (Tympanic) Resp 16 Wt 78 kg (171 lb 15.3 oz) SpO2 97% Physical Exam Vitals reviewed. Constitutional: Appearance: Normal appearance. HENT: Head: Normocephalic and atraumatic. Right Ear: Tympanic membrane, ear canal and external ear normal. Left Ear: Tympanic membrane, ear canal and external ear normal. Nose: Congestion present. Mouth/Throat: Mouth: Mucous membranes are moist. Pharynx: Oropharynx is clear. Cardiovascular: Rate and Rhythm: Normal rate and regular rhythm. Heart sounds: Normal heart sounds. Pulmonary: Effort: Pulmonary effort is normal. Breath sounds: Normal breath sounds. Musculoskeletal: Cervical back: Neck supple. Skin: General: Skin is warm and dry. Findings: No rash. Neurological: Mental Status: He is alert. Assessment and Plan ASSESSMENT/PLAN: 1. Viral URI with cough - ICD9: 465.9, ICD10: J06.9 - Discussed viral etiology and rationale for treatment. - Symptomatic treatment with prn analgesia - Supportive care with fluids and rest -Rapid PCR influenza negative. COVID test pending. If positive he is in the window for antivirals and would be considered high risk being diabetic. - INFLUENZA A&B MOLECULAR (POC) - COVID & INFLUENZA A/B & RSV PCR, ROUTINE Nunu Barreto PA-C documented in this encounter [facility] Progress note 06-13-2023 Note Date & Type Note Facility 06-13-2023 Note HNO ID: [id number] Author: Laury Becker PA Service: ? Author Type: Physician Cotton Washer Type: Progress Notes Filed: 06/13/2023 7:32 AM Note Text: This note was created using [employer]. Subjective Ulices Bhakta is a 48 year old male. HPI 48-year-old male presents for ear pain, cough. Patient states he was sick earlier this week with congestion, cough, fever. He states all symptoms resolved other than cough. He started getting bilateral ear pain yesterday. No drainage from the ears. Has history of ear infections as a child. No vomiting or diarrhea. No continued fevers. No other complaint. 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 MEDICATIONS atorvastatin (LIPITOR) 40 mg tablet Take 1 tablet by mouth every afternoon. TRUE METRIX GLUCOSE TEST STRIP test strip use 1 (ONE) strip DAILY TRUE METRIX GLUCOSE METER as directed. TRULICITY 3 mg/0.5 mL pen injector one time a week. JARDIANCE 25 mg tablet Take 25 mg by mouth every morning. lisinopril (ZESTRIL) 10 mg tablet Take 1 tablet by mouth every afternoon. metFORMIN ER (GLUCOPHAGE XR) 500 mg 24 hr tablet Take 2 tablets by mouth every afternoon. ONE DAILY MULTI-VITAMIN TAB Take one(1) tablet daily. amoxicillin (AMOXIL) 875 mg tablet Take 1 tablet by mouth two times a day for 7 days. FAMILY HISTORY Problem Relation Age of Onset Hypertension Mother Breast Cancer Maternal Grandmother Lung cancer Breast Cancer Maternal Aunt Cancer Maternal Uncle testicular Ischemic Heart Disease Maternal Grandfather Social History Tobacco Use Smoking status: Never Smokeless tobacco: Never Substance Use Topics Alcohol use: No Drug use: No Review of Systems Constitutional: Negative for chills and fever. HENT: Positive for ear pain. Negative for congestion and sore throat. Respiratory: Positive for cough. Negative for shortness of breath. Gastrointestinal: Negative for diarrhea and vomiting. Objective BP 102/72 Pulse 104 Temp 36.6 ?C (97.9 ?F) (Left Tympanic) Resp 16 Wt 77.8 kg (171 lb 9.6 oz) SpO2 98% Physical Exam Vitals and nursing note reviewed. Constitutional: General: He is not in acute distress. Appearance: Normal appearance. He is not toxic-appearing. HENT: Right Ear: A middle ear effusion is present. Tympanic membrane is erythematous and bulging. Left Ear: A middle ear effusion is present. Nose: Nose normal. Mouth/Throat: Mouth: Mucous membranes are moist. Eyes: Conjunctiva/sclera: Conjunctivae normal. Cardiovascular: Rate and Rhythm: Normal rate and regular rhythm. Pulmonary: Effort: Pulmonary effort is normal. Breath sounds: Normal breath sounds. Skin: General: Skin is warm and dry. Neurological: Mental Status: He is alert. Assessment and Plan ASSESSMENT/PLAN: 1. Acute otitis media, right - ICD9: 382.9, ICD10: H66.91 - Will begin treatment with Amoxicillin for 7 days - Supportive care with plenty of fluids, rest, and analgesia prn. - may contineu OTC medications as needed cough/congestion. Recommend Flonase for mid ear effusions/congestion Diagnosis and treatment plan were discussed and questions were answered to the patient's satisfaction. Pt acknowledged understanding of concepts and follow up plan. Specific signs and symptoms that would indicate the need for higher level of care were discussed in detail warranting prompt ER evaluation. [facility] Evaluation note Note Date & Type Note Facility Evaluation note No [facility] Work Phone: Evaluation note Note Date & Type Note Facility Evaluation note Diagnosis Viral URI with cough- Primary Acute upper respiratory infections of unspecified site documented in this encounter [facility] Chief Complaint and Reason for Visit Chief Complaint E ORDER Summary Purpose Family History No Family History Records FoundNo Family History Records Found Advance Directives No Advanced Directives Records FoundNo Advanced Directives Records Found Additional Source Comments Goals (unrecognized section and content) Goals may be documented in a n alternate sectionGoals may be documented in an alternate section Care Teams (unrecognized sec tion and content) Team Status: Active Member Role Status Dates Dr. Manav Freeman MD Family Provider Active Dr. Manav Freeman MD Primary Care Provider Activ e Team Status: Inactive Member Role Status Dates Dr. Manav Freeman MD Primary Care Provider, Atte jaroding Provider Active Fine Dining Server Relationship Specialty Start Date End Date Renetta Freeman MD [address] [place] [address] PCP - General Family Medicine 06/13/23 Fine Dining Server Relationship Specialty Start Date End Date Renetta Freeman MD [address] [place] [address] PCP - General Family Medicine 06/13/23 (unrecognized sect ion and content) No Status Records FoundNo Status Records Found INFORMATION SOURCE (unrecogn ized section and content) DATE CREATED AUTHOR 05/16/2024 [facility] DATE CREATED AUTHOR AUTHOR'S DALTON MOORE 06/05/2024 [facility] Source Comments (unrecognize d section and content) In the event this informatio n is protected by the Federal Confidentiality of Alcohol and Drug Abuse Patient Records regulations: The Federal rules restrict any use of the information to criminally investigate or prosecute any alcohol or drug abuse patient.[facility] the event this information is protected by the Federal Confidentiality of Alcohol and Drug Abuse Patient Records regulations: The Federal rules restrict any use of the information to criminally investigate or prosecute any alcohol or drug abuse patient.[facility] Reason for Visit (unrecogniz ed section and content) Reason Comments Cold Entered by patient Cough Cough, congestion an d fever x 2 days Reason Comments Results FOR RECORDS PERTAINING TO PATIENTS WHO ARE OR HAVE BEEN ENROLLED IN A CHEMICAL DEPENDENCY/SUBSTANCEABUSE PROGRAM, SOME INFORMATION MAY BE OMITTED. This clinical summary was aggregated from multiple sources. Caution should be exercised in using it in the provision of clinical care. This summary normalizes information from multiple sources, and as a consequence, information in this document may materially change the coding, format and clinical context of patient data. In addition, data may be omitted in some cases. CLINICAL DECISIONS SHOULD BE BASED ON THE PRIMARY CLINICAL RECORDS. [facility]. provides no warranty or guarantee of the accuracy or completeness of information in this document.
--- OUTSIDE RECORDS SUMMARY | 2025-03-21 09:12 | XMS RPT_ITS | CCD ---
Author Organization [facility] Care Team Providers Care Systems Test Technician Name Role Phone Roz DIRECTOR MARKETING COMMUNICATIONS, Angela Attending Unavailable Roz DIRECTOR MARKETING COMMUNICATIONS, Angela Referring Unavailable Renetta Freeman Primary Care Unavailable Roz DIRECTOR MARKETING COMMUNICATIONS, Angela Attending Unavailable Roz DIRECTOR MARKETING COMMUNICATIONS, Angela Referring Unavailable Renetta Freeman Primary Care [...] CNOV Office Visit (UCWSTR) -------- ULICES BHAKTA ([id number]) 1975 M Date Time Provider Department 06/02/24 11:30 AM MARY LOU NUNU Brennan [facility] During your visit today, we recorded the following information about you: Temperature Pulse Respiration Blood pressure 97.7 degrees 90/minute 16/minute 122/80 Weight 78 kg Nunu Barreto PA-C 06/02/2024 12:59 PM Signed This note was created using [employer]. Subjective Ulices Bhakta is a 49 year [...] with cough [J06.9] Order(s):INFLUENZA AANDB MOLECULAR (POC) [4259505] Order #: [id number]. #:[id number] COVID AND INFLUENZA A/B AND RSV PCR, ROUTINE [[id number]] Order #: [id number]. #:[id number] Prescriptions as of 06/04/2024 - atorvastatin (LIPITOR) [...] DAILY MULTI-VIT (more content not included)... Normal [facility] ULICES BHAKTA ([id number]) 1975 Date Time Provider Department 06/02/24 CARMENZA SALCIDO [facility] During your visit today, we recorded the following information about you: Carmenza Salcido APRN.[facility] 06/02/2024 7:55 PM Signed COVID negative [...] Status:Closed by CARMENZA SALCIDO on 06/02/24 Normal [facility] COVID AND INFLUENZA A/B AND RSV PCR, ROUTINEon 06-02-2024 SARS-CoV-2 (COVID-19) RNA PAU+probe Ql (Unsp spec) SARS-COV-2 (AGENT OF COVID-19) RNA: Not detected INFLUENZA A RNA: Not detected INFLUENZA B RNA: Not detected RESPIRATORY SYNCYTIAL VIRUS (RSV) RNA: Detected Abnormal [facility] Comment on above: Performed By: #### C VFLRS #### [facility] CLIA [id number] [address] [place] [address] [place] INFLUENZA A&B MOLECULAR (POC )on 06-02-2024 Flu A (POCT) Negative Negative [facility] Flu B (POCT) Negative Negative [facility] Procedural Control Valid [facility] Location:[facility], [facility], [place], [address] [facility] POINT OF CARE [facility] CNOVon 06-13-2023 CNOV Office Visit (UCWSTR) -------- ULICES BHAKTA ([id number]) 1975 M Date Time Provider Department 06/13/23 7:30 AM LAURY BECKER [facility] During your visit today, we recorded the following information about you: Temperature Pulse Respiration Blood pressure 97.9 degrees 104/minute 16/minute 102/72 Weight 77.8 kg Laury Becker PA 06/13/2023 7:32 AM Signed This note was created using [employer]ge [employer]. Subjective Ulices Bhakta is a 48 year [...] 7 days. (more content not included)... Normal [facility] Basophil percentageOrdered B y: Manav Freeman on 02-27-2023 Bilirubin [Mass/Vol] 0.80 mg/dL 0.20-1.00 [facility] Comment on above: For patients on eltr ombopag therapy, use of Dimension [place] TBIL is not recommended. Chloride [Moles/Vol] 102 mmol/L 98-107 [facility] Cholesterol [Mass/Vol] 114 mg/dL <200 [facility] Comment on above: <200 mg/dL Desirable 200-240 mg/dL Borderline >240 mg/dL High Risk Glucose [Mass/Vol] 106 mg/dL 74-106 [facility] Comment on above: Fasting Glucose resu lt from 100 to 125 mg/dL suggests IMPAIRED HOMEOSTASIS per A.D.A. criteria. Potassium [Moles/Vol] 4.1 mmol/L 3.5-5.1 [facility] Protein [Mass/Vol] 8.0 g/dL 6.4-8.2 [facility] Sodium [Moles/Vol] 133 mmol/L 136-145 [facility] Testosterone [Mass/Vol] 286.91 ng/dL [facility] Comment on above: CENTRAL 90% REFERENC E RANGES MALE AGE <50 197.44 - 669.58 ng/dL MALE AGE > or = 50 187.72 - 684.19 ng/dL FEMALE AGE <50 8.38 - 35.01 ng/dL FEMALE AGE > or = 50 <7.00 - 35.92 ng/dL Effective as of 7/27/21 Triglyceride [Mass/Vol] 98 mg/dL <199 [facility] Comment on above: The drugs N-Acetylcy steine and Metamizole may falsely depress this assay.Serum Triglycerides Reference Interval Normal <150 mg/dL Borderline high 150 - 199 mg/dL High 200 - 499 mg/dL Very High > or = 500 mg/dL Laboratory - Chemistry and C hemistry - challengeOrdered By: Manav Freeman on 02-27-2023 ALP [Catalytic activity/Vol] 79 U/L 45-117 [facility] ALT [Catalytic activity/Vol] 53 U/L 16-61 [facility] CO2 [Moles/Vol] 27.0 mmol/L 21.0-32.0 [facility] Globulin (S) [Mass/Vol] 3.7 g/dL 2.2-4.2 [facility] Urea nitrogen/Creatinine [Mass ratio] 16.8 mg/mg 10-20 [facility] No Panel InformationOrdered By: Manav Freeman on 02-27-2023 Estimated GFR (MDRD) Amer 95 mL/min >60 [facility] Comment on above: GFR Calc Estimated GFR (MDRD) Non-Af Amer 79 mL/min >60 [facility] Comment on above: Non- GFR Calc Thyroid Stimulating Hormone (TSH) 1.45 uIU/mL 0.358-3.74 [facility] Serum or plasma albumin penelope urement (mass/volume)Ordered By: Manav Freeman on 02-27-2023 Albumin [Mass/Vol] 4.3 g/dL 3.2-5.0 [facility] Serum or plasma albumin/glob ulin mass ratioOrdered By: Manav Freeman on 02-27-2023 Albumin/Globulin [Mass ratio] 1.2 {ratio} 0.9-2.4 [facility] Serum or plasma calcium penelope urement (mass/volume)Ordered By: Manav Freeman on 02-27-2023 Calcium [Mass/Vol] 9.4 mg/dL 8.5-10.1 [facility] Serum or plasma cholesterol in HDL measurement (mass/volume)Ordered By: Manav Freeman on 02-27-2023 Cholesterol in HDL [Mass/Vol] 38 mg/dL >40 [facility] Comment on above: The drugs N-Acetylcy steine and Metamizole may falsely depress this assay. Reference Range HDL <40 mg/dL Low HDL Cholesterol HDL >or= 60 mg/dL High HDL Cholesterol Serum or plasma cholesterol in VLDL measurement (mass/volume)Ordered By: Manav Freeman on 02-27-2023 Cholesterol in VLDL [Mass/Vol] 20 mg/dL 5-40 [facility] Serum or plasma creatinine m easurement (mass/volume)Ordered By: Manav Freeman on 02-27-2023 Creatinine [Mass/Vol] 1.07 mg/dL 0.70-1.30 [facility] Comment on above: The validity of the calculated GFR & GFRAA in patients over 70 years has not been determined. Clinical correlation is essential. Serum or plasma low density lipoprotein (LDL) cholesterol measurement (mass/volume)Ordered By: Manav Freeman on 02-27-2023 Cholesterol in LDL [Mass/Vol] 56 mg/dL 0-130 [facility] Serum or plasma urea nitroge n measurement (mass/volume)Ordered By: Manav Freeman on 02-27-2023 Urea nitrogen [Mass/Vol] 18 mg/dL 7-18 [facility] Thin prep Papanicolaou smear with manual screeningOrdered By: Manav rFeeman on 02-27-2023 Thin prep Papanicolaou smear with manual screening 23 U/L 15-37 [facility] Thin prep Papanicolaou smear with manual screening 4 5-15 [facility] Basophil percentageon 2021 Bilirubin [Mass/Vol] 0.60 mg/dL 0.20-1.00 [facility] Work Phone: Comment on above: For patients on eltr ombopag therapy, use of Dimension [place] TBIL is not recommended. Chloride [Moles/Vol] 102 mmol/L 98-107 [facility] Work Phone: Cholesterol [Mass/Vol] 157 mg/dL <200 [facility] Work Phone: Comment on above: <200 mg/dL Desirable 200-240 mg/dL Borderline >240 mg/dL High Risk Glucose [Mass/Vol] 133 mg/dL 74-106 [facility] Work Phone: Comment on above: Fasting Glucose resu lt greater than or equal to 126 mg/dL suggests DIABETES MELLITUS per A.D.A. criteria. Potassium [Moles/Vol] 4.5 mmol/L 3.5-5.1 [facility] Work Phone: Protein [Mass/Vol] 7.9 g/dL 6.4-8.2 [facility] Work Phone: Sodium [Moles/Vol] 136 mmol/L 136-145 [facility] Work Phone: Triglyceride [Mass/Vol] 137 mg/dL <199 [facility] Work Phone: Comment on above: The drugs N-Acetylcy steine and Metamizole may falsely depress this assay.Serum Triglycerides Reference Interval Normal <150 mg/dL Borderline high 150 - 199 mg/dL High 200 - 499 mg/dL Very High > or = 500 mg/dL Laboratory - Chemistry and C hemistry - challengeon 12-12-2021 ALP [Catalytic activity/Vol] 54 U/L 45-117 [facility] Work Phone: ALT [Catalytic activity/Vol] 51 U/L 16-61 [facility] Work Phone: CO2 [Moles/Vol] 28.0 mmol/L 21.0-32.0 [facility] Work Phone: Globulin (S) [Mass/Vol] 3.5 g/dL 2.2-4.2 [facility] Work Phone: Urea nitrogen/Creatinine [Mass ratio] 17.6 mg/mg 10-20 [facility] Work Phone: No Panel Informationon 12-12 Estimated GFR (MDRD) Amer 108 mL/min >60 [facility] Work Phone: Comment on above: GFR Calc Estimated GFR (MDRD) Non-Af Amer 89 mL/min >60 [facility] Work Phone: Comment on above: Non- GFR Calc Thyroid Stimulating Hormone (TSH) 2.04 uIU/mL 0.358-3.74 [facility] Work Phone: Serum or plasma albumin penelope urement (mass/volume)on 12-12-2021 Albumin [Mass/Vol] 4.4 g/dL 3.2-5.0 [facility] Work Phone: Serum or plasma albumin/glob ulin mass ratioon 12-12-2021 Albumin/Globulin [Mass ratio] 1.3 {ratio} 0.9-2.4 [facility] Work Phone: Serum or plasma calcium penelope urement (mass/volume)on 12-12-2021 Calcium [Mass/Vol] 9.4 mg/dL 8.5-10.1 [facility] Work Phone: Serum or plasma cholesterol in HDL measurement (mass/volume)on 12-12-2021 Cholesterol in HDL [Mass/Vol] 38 mg/dL >40 [facility] Work Phone: Comment on above: The drugs N-Acetylcy steine and Metamizole may falsely depress this assay. Reference Range HDL <40 mg/dL Low HDL Cholesterol HDL >or= 60 mg/dL High HDL Cholesterol Serum or plasma cholesterol in VLDL measurement (mass/volume)on 12-12-2021 Cholesterol in VLDL [Mass/Vol] 27 mg/dL 5-40 [facility] Work Phone: Serum or plasma creatinine m easurement (mass/volume)on 12-12-2021 Creatinine [Mass/Vol] 0.97 mg/dL 0.70-1.30 [facility] Work Phone: Comment on above: The validity of the calculated GFR & GFRAA in patients over 70 years has not been determined. Clinical correlation is essential. Serum or plasma low density lipoprotein (LDL) cholesterol measurement (mass/volume)on 12-12-2021 Cholesterol in LDL [Mass/Vol] 92 mg/dL 0-130 [facility] Work Phone: Serum or plasma urea nitroge n measurement (mass/volume)on 12-12-2021 Urea nitrogen [Mass/Vol] 17 mg/dL 7-18 [facility] Work Phone: Thin prep Papanicolaou smear with manual screeningon 12-12-2021 Thin prep Papanicolaou smear with manual screening 29 U/L 15-37 [facility] Work Phone: Thin prep Papanicolaou smear with manual screening 6 5-15 [facility] Work Phone: Vital Signs Date Time Vital Sign Value Performing Clinician Alysa zacarias 06-02-2024 11:28-0500 Body temperature 97.7 [degF] Nunu Athy PA-C Work Phone: [facility] 06-02-2024 11:28-0500 Body weight 78 kg Nunu Athy PA-C Work Phone: [facility] 06-02-2024 11:28-0500 Diastolic blood pressure 80 mm[Hg] Nunu Athy PA-C Work Phone: [facility] 06-02-2024 11:28-0500 Heart rate 90 /min Nunu Athy PA-C Work Phone: [facility] 06-02-2024 11:28-0500 Respiratory rate 16 /min Nunu Athy PA-C Work Phone: [facility] 06-02-2024 11:28-0500 SaO2% (BldA) [Mass fraction] 97 % Nunu Athy PA-C Work Phone: [facility] 06-02-2024 11:28-0500 Systolic blood pressure 122 mm[Hg] Nunu Athy PA-C Work Phone: [facility] Encounters Encounter Date Encounter Type Care Provider Facility Start: 06-02-2024 End: 06-02-2024 Telephone encounter Carmenza Salcido APRN.CNP Work Phone: [facility] Comment on above: Results Start: 06-02-2024 End: 06-02-2024 ambulatory RENETTA FREEMAN Facility[facility] Start: 06-02-2024 End: 06-02-2024 Patient encounter procedure Nunu Barreto PA-C Work Phone: [facility] Comment on above: Viral URI with cough (Primary Dx) Start: 06-01-2024 ambulatory Angela Courtney DIRECTOR MARKETING COMMUNICATIONS Facility :[facility] Start: 04-27-2024 End: 05-15-2024 ambulatory Angela Roz DIRECTOR MARKETING COMMUNICATIONS Facility:[facility] Start: 06-13-2023 End: 06-13-2023 ambulatory RENETTA FREEMAN Facility:[facility] Start: 02-27-2023 End: 02-27-2023 ambulatory [facility] Work Phone: Start: 02-27-2023 End: 02-27-2023 [facility]: Start: 12-12-2021 End: 12-12-2021 Patient encounter procedure [facility] Family Procedures Date Procedure Procedure Detail Performing Clinician Start: 06-02-2024 INFLUENZA A&B MOLECU LAR (POC) Nunu Barreto PA-C Work Phone: Start: 10-16-2009 Lipid 1996 panel - S joseph or Plasma Nunu Barreto PA-C Work Phone: Plan of Treatment Date Care Activity Detail Author Start: 03-13-2032 Urine microalbumin profile DTaP,Tdap,Td Vaccine (2 - Td or Tdap) [facility] Start: 02-15-2024 Covid-19 Vaccine ( season) Covid-19 Vaccine ( season) [facility] Start: 02-15-2024 Influenza vaccination Influenza Vaccine (#1) [facility] Start: 2021 Diabetes Screening Diabetes Screening [facility] Start: 2021 Screening for malignant neoplasm of colon [facility] Start: 10-16-2014 Lipid panel Lipid Screening [facility] Start: 1995 Hepatitis B Vaccine (1 of 3 - 19+ 3-dose series) Hepatitis B Vaccine (1 of 3 - 19+ 3-dose series) [facility] Start: 1994 Anxiety Screening Anxiety Screening [facility] Start: 1994 Depression Screening Depression Screening [facility] Start: 1994 Hepatitis C screening Hepatitis C Screening [facility] Start: 1994 HIV screening HIV Screening [facility] COVID & INFLUENZA A/ B & RSV PCR, ROUTINE COVID & INFLUENZA A/B & RSV PCR, ROUTINE Microbiology Routine Viral URI with cough 06/02/2024 12:01 PM EST [facility] Work Phone: Immunizations Immunization Date Immunization Notes Care Provider Timur meyer 03-16-2019 influenza virus vacc ine, unspecified formulation Nunu Barreto PA-C Work Phone: [facility] Payers Date Payer Category Payer Self-pay [id number] 2009 Unknown [employer] PPO [id number] 2009-Present [phone] [address] [place] [address] PPO [id number] 2009 Unknown [id number] Unknown [id number] Unknown [id number] Social History Date Type Detail Facility [facility]: [facility] Start: 1975 Sex Assigned At Male [facility] Start: 06-13-2023 [facility] Start: 06-13-2023 Tobacco use and exposure Smokeless tobacco non-user [facility] Start: 06-02-2024 Alcoholic beverage intake Current non-drinker of alcohol (finding) [facility] Start: 06-02-2024 History of Social function [facility] Start: 06-02-2024 Tobacco use panel [facility] Start: 1975 Sex assigned at Not on file C [facility] Medical Equipment Procedure Code Equipment Code Equipment Origin al Text Equipment Identifier Dates use 1 (ONE) stri p DAILY Start: 02-27-2023 Telephone encounter Note 06-02-2024 Telephone Encounter - Carmenza Salcido APRN.CNP - 06/02/2024 7:54 PM EST Note Date & Type Note Facility 06-02-2024 Telephone encounter Note COVID negative Influenza negative RSV POSITIVE Supportive measures, rest, fluids [facility] Work Phone: Note 06-02-2024 Telephone Encounter - Carmenza Salcido APRN.CNP - 06/02/2024 7:54 PM EST Note Date & Type Note Facility 06-02-2024 Miscellaneous Notes Formattin g of this note might be different from the original. COVID negative Influenza negative RSV POSITIVE Supportive measures, rest, fluids documented in this encounter [facility] Progress note 06-02-2024 Note Date & Type Note Facility 06-02-2024 Note HNO ID: [id number] Author: NUNU BARRETO PA-C Service: ? Author Type: Physician Literacy Coach Type: Progress Notes Filed: 06/02/2024 12:59 Note Text: This note was created using [employer]. Subjective Ulices Bhakta is a 49 year [...] AND RSV PCR, ROUTINE Nunu Barreto PA-C [facility] History of Present illness Narrative 06-02-2024 Nunu Barreto PA-C - 06/02/2024 12:56 PM EST Note Date & Type Note Facility 06-02-2024 History of Presen t illness Narrative This note was created using [employer]. Subjective Ulices Bhakta is a 49 year [...] Nunu Barreto PA-C documented in this encounter [facility] Progress note 06-13-2023 Note Date & Type Note Facility 06-13-2023 Note HNO ID: [id number] Author: Laury Becker PA Service: ? Author Type: Physician Literacy Coach Type: Progress Notes Filed: 06/13/2023 7:32 AM Note Text: This note was created using [employer]. Subjective Ulices Bhakta is a 48 year [...] detail warranting prompt ER evaluation. PRINCE Martin [facility] Evaluation note Note Date & Type Note Facility Evaluation note [facility] Evaluation note Note Date & Type Note Facility Evaluation note Diagnosis Viral URI with cough- Primary Acute upper respiratory infections of unspecified site documented in this encounter [facility] Chief Complaint and Reason for Visit [...] Primary Care Provider, Atte jaroding Provider Active Systems Test Technician Relationship Specialty Start Date End Date Renetta Freeman MD [address] [place] [address] PCP - General Family Medicine 06/13/23 Systems Test Technician Relationship Specialty Start Date End Date Renetta Freeman MD [address] [place] [place] [address] PCP - General Family Medicine 06/13/23 (unrecognized sect ion and content) No Status Records FoundNo Status Records Found INFORMATION SOURCE (unrecogn ized section and content) DATE CREATED AUTHOR 05/16/2024 [facility] DATE CREATED AUTHOR AUTHOR'S DALTON MOORE 06/05/2024 [facility] Source Comments (unrecognize d section and content) In the event this informatio n is protected by the Federal Confidentiality of Alcohol and Drug Abuse Patient Records regulations: The Federal rules restrict any use of the information to criminally investigate or prosecute any alcohol or drug abuse patient.[facility] the event this information is protected by the Federal Confidentiality of Alcohol and Drug Abuse Patient Records regulations: The Federal rules restrict any use of the information to criminally investigate or prosecute any alcohol or drug abuse patient.[facility] Reason for Visit (unrecogniz ed section [...] BE BASED ON THE PRIMARY CLINICAL RECORDS. [facility], [facility]. provides no warranty or guarantee of the accuracy or completeness of information in this document.
[2025-03-21 10:51] LABS: AST(SGOT) 26 U/L (<=37); Alanine Aminotransfer ALT/SGPT 36 U/L (<=46); Albumin, Serum 4.3 g/dL (3.5-5.0); Alkaline Phosphatase 66 U/L (40-129); Anion Gap 13 (5-15); BUN 14 mg/dL (4-19); BUN/Creat Ratio 16.3 RATIO (10-20); Calcium,Total 9.2 mg/dL (7.6-11.0); Carbon Dioxide 22.2 mmol/L (21.0-32.0); Chloride 103 mmol/L (98-108); Cholesterol 124 mg/dL (<=200); Globulin 2.7 g/dL (2.2-4.2); Glucose 143 mg/dL (70-99); Low Density Lipoprotein Calc. 69 mg/dL; Potassium 4.5 mmol/L (3.3-5.1); Triglycerides 81 mg/dL; Very Low Density Lipoprotein 16 mg/dL (5-40); Vitamin B12 233 pg/mL (180-914); cholesterol:hdl ratio screen 3.21
== END | disposition home or self-care (01) ==
LOC: MTLAB 08:35
PROVIDERS: PCP Family Medicine; Referring Provider Family Medicine; Visit Provider Family Medicine
DX: E11.319 Type 2 diabetes mellitus with unspecified diabetic retinopathy without macular edema (principal)
CPT/HCPCS: 36415; 80053; 80061; 82607; 83036; 84403; 84443

== ENCOUNTER 2025-06-01 15:49 | Emergency (ER) | payer BC, SELFPAY ==
[2025-06-01] VITALS (7 sets, daily range): BP systolic 114–154; BP diastolic 80–96; PULSE 108–144; RESP 16–20; TEMP 36.8–36.9; O2SAT 97–100; BMI 28.3
[2025-06-01 16:07] LABS: Hematocrit 49.1 % (40-54); Hemoglobin 16.0 g/dL (13.0-16.5); Immature Granulocytes Count 0.020 X10^3/uL (0.0-0.0); Mean Corp Hgb Conc 32.6 g/dL (32-36); Mean Corpuscular Volume 93.7 fL (80-94); Mean Platelet Vol. 10.8 fl (6.2-12.0); NRBC Flagged by Analyzer 0 % (0-5); Platelet Count 263 K/mm3 (150-450); RBC Distribution Width CV 12.7 % (11.6-14.6); RBC Distribution Width SD 43.8 fl (35.1-43.9); Red Blood Count 5.24 M/mm3 (4.6-6.2); White Blood Count 7.9 K/mm3 (4.4-11.0)
--- NOTE | 2025-06-01 16:09 | RAD_ITS ---
PROCEDURE: CHEST 1 VIEW (PORTABLE) 06/01/2025 REASON FOR EXAM: CHEST PAIN TECHNIQUE: Frontal view of the chest. COMPARISON: None. FINDINGS: Lungs/Pleura: Clear. Heart/Mediastinum: Normal in size. Bones/Soft tissues: Unremarkable. RAD/Chest 1 View (Portable) IMPRESSION: No acute cardiopulmonary disease. Reading Location: [id number]
--- NOTE | 2025-06-01 16:22 | EKG12_ITS ---
Test Reason : chest pain Blood Pressure : */* mmHG Vent. Rate : 134 BPM Atrial Rate : 134 BPM P-R Int : 160 ms QRS Dur : 98 ms QT Int : 284 ms P-R-T Axes : 36 68 0 degrees QTcB Int : 424 ms Sinus tachycardia Otherwise normal ECG Confirmed by Khris Slaughter ([id number]), material expeditor JUVENCIO ABBASI ([id number]) on 06/03/2025 10:27:17 AM Referred By: Confirmed By: Khris Slaughter
--- NOTE | 2025-06-01 16:28 | ED.VIS.CHEST ---
HPI History of Present Illness Chief Complaint: Chest Pain Informant: patient Onset/Context/Timing Onset: Weeks Activity at onset: sudden Timing: Intermittent Quality: Positive for Dull and Sharp Location: Substernal and Left Parasternal Current Severity: Mild Maximum Severity: Severe Worsened By: Nothing Relieved By: Nothing Associated Symptoms: Positive for Palpitations and - (Tightness left arm and numbness left ring and little finger); Negative for Nausea, Vomiting, Diaphoresis, Dyspnea, Cough, Fever, Lightheadedness or Acid Reflux Narrative Narrative: Patient is a 50-year-old male with type 2 diabetes without insulin therapy who presents because of intermittent chest pain that initially is sharp last for about 30 seconds and then is a dull discomfort the last up to 30 minutes. There is no precipitating, exacerbating or alleviating factors. There is no associated symptoms. What concerned him today is that his heart rate was rapid and he had numbness and tightness in his left upper extremity as previously described. He is still having some slight discomfort. This started prior to his arrival. He has had multiple episodes per day for the last 2 to 3 weeks. He denies history of hypertension, hypercholesterolemia even though he is on a blood pressure medicine and cholesterol medicine. He states his last A1c was approximately 7. He states that was a good number for him. He denies history of hiatal hernia, reflux or peptic ulcer disease. [place] black or maroon-colored stool. He denies intolerance to greasy or fried foods. He denies history of VTE. He has no risk factors for VTE. He denies leg pain, swelling discoloration. Prior Similar Symptoms: No Recent Illness/Hospitalization: No CVD Risk Factors: Positive for Diabetes; Negative for Hypertension, Hypercholesterolemia, Family History 1' </=55 or Smoking PE Risk Factors: Negative for Recent Travel/Surgery, Recent Immobilization, Prior DVT or PE, Cancer or OCP + Smoking + >/=35 TAD Risk Factors: Negative for Marfan's Syndrome, Hypertension or Family History [facility] Medical History No pertinent family history COVID-19 Diabetes type 2, controlled Home Medications ?Medication ?Instructions ?Recorded ?Last Taken ?Type atorvastatin 20 mg tablet 20 mg PO DAILY 07/25/20 07/26/20 History lisinopril 10 mg tablet 10 mg PO DAILY 07/25/20 07/26/20 History metformin 500 mg tablet 2,000 mg PO DAILY 07/25/20 07/26/20 History empagliflozin 25 mg tablet 25 mg PO DAILY 07/27/20 07/26/20 History sitagliptin phosphate 100 mg tablet 100 mg PO DAILY 07/27/20 07/26/20 History Allergy/AdvReac Type Severity Reaction Status Date / Time No Known Allergies Allergy Verified 06/01/25 15:51 Surgical History No pertinent past surgical history Social History (Updated 06/01/25 @ 16:[address] Tano Serrano MD) household members: children Smoking Status: Never smoker ROS ROS ED Constitutional Constitutional ED: Denies chills, fever(s), subjective, sweats or weight loss Eyes Eyes: Reports none ENT ENT ED: Denies ear pain or rhinorrhea Cardiovascular Cardiovascular: Reports as per HPI; Denies orthopnea or paroxysmal nocturnal dyspnea Respiratory/Chest Respiratory/Chest: Denies cough, dyspnea, dyspnea on exertion, orthopnea or paroxysmal nocturnal dyspnea Gastrointestinal Gastrointestinal: Denies abdominal pain, constipation, diarrhea, melena, nausea or vomiting Genitourinary Genitourinary ED: Denies dysuria, hematuria or urinary frequency Musculoskeletal Musculoskeletal: Denies arthralgias or myalgias Integumentary Denies abscess or rash Neurologic Neurologic: Reports paresthesias LUE; Denies headache(s) Psychiatric Psychiatric: Denies anxiety or depression Hematologic/Lymphatic Hematologic/Lymphatic: Denies easy bleeding or easy bruising EXAM Physical Exam Const Vital Signs: 06/01/25 15:49 06/01/25 15:52 06/01/25 16:49 Temperature 98.2 F Temperature Source Temporal Pulse Rate 144 H 128 H Respiratory Rate 20 H 20 H Blood Pressure 154/96 H 142/95 H Blood Pressure Mean 115 110 Pulse Ox 98 99 100 Oxygen Delivery Method Room Air Room Air 06/01/25 17:00 06/01/25 18:00 06/01/25 19:00 Temperature Temperature Source Pulse Rate 133 H 114 H 110 H Respiratory Rate 18 16 16 Blood Pressure 147/92 H 138/82 H 136/80 H Blood Pressure Mean 110 100 98 Pulse Ox 100 99 99 Oxygen Delivery Method Room Air Positive well nourished and well developed General Appearance ED: well developed and NAD; Negative for pallor HEENT Reports moist mucous membranes normocephalic and atraumatic Eyes PERRL and EOMs intact bilaterally General Eye ED: Negative for pale conjunctiva or scleral icterus Neck no lymphadenopathy, supple and no JVD Resp normal respiratory effort and clear to auscultation bilaterally Cardio regular rhythm, S1 normal heart sound, S2 normal heart sound and no murmurs Rate: tachycardic Peripheral Pulses: pulses 2+ throughout GI normal to inspection, nondistended, normoactive bowel sounds, soft to palpation, non-tender, non-distended and no masses; Negative for hepatosplenomegaly Back/Spine no CVA tenderness Extremity normal to inspection Extremity Narrative: Mild edema of his lower extremities. There is imprint of his sock bilaterally. General Extremety ED: Yes edema General Extremity: edema Neuro oriented x3, CN's II-XII intact bilaterally and no sensory deficits noted Neuro Narrative: Positive Tinel's sign over the ulnar nerve and may explain his numbness in his ring and little finger on the left side. Sensorium / Orientation: awake Motor Exam: strength 5/5 throughout Psych mental status grossly normal Skin no rashes or lesions noted and no wounds General Skin Exam: Negative for jaundice or pallor MDM MDM MDM Narrative Medical decision making narrative: Patient with chest pain. Need to evaluate cardiac versus noncardiac. Noncardiac would include pulmonary embolus, aortic dissection since he complains of pain going through his back. Pneumothorax, pneumonia, GI etiology. Appropriate blood work was ordered. Lab Data Attestation: I reviewed the patient's lab results. Lab results narrative: CBC reveals no significant abnormalities and slight increase in lymphocytosis. Electrolyte panel is white for glucose of 224. He is diabetic. CO2 anion gap is normal. First troponin is normal at 7. Second troponin is normal at 13 with a delta of 6. Since his symptoms are going on for weeks this would rule out cardiac etiology. Uncertain why he is tachycardic. He has no symptoms of hyperthyroidism. Will obtain a TSH and T4. Will have him follow-up with his primary care physician and referred to cardiology. He was referred to Dr. Slaughter on-call for no doc. Labs: Laboratory Results - last 24 hr 06/01/25 06/01/25 06/01/25 16:02 16:45 18:15 WBC 7.9 RBC 5.24 Hgb 16.0 Hct 49.1 MCV 93.7 MCH 30.5 MCHC 32.6 RDW Std Deviation 43.8 RDW Coeff of Hilary 12.7 Plt Count 263 MPV 10.8 Immature Gran % (Auto) 0.300 Neut % (Auto) 48.1 Lymph % (Auto) 41.5 H [place] % (Auto) 8.7 Eos % (Auto) 0.8 Baso % (Auto) 0.6 Absolute Neuts (auto) 3.8 Absolute Lymphs (auto) 3.29 Nucleated RBC % 0 D-Dimer Quant (PE/DVT) 0.34 Sodium 138 Potassium 4.0 Chloride 99 Carbon Dioxide 25.1 Anion Gap 13 BUN 18 Creatinine 1.07 Estim Creat Clear Calc 82.79 Est GFR (MDRD) Non-Af 85 BUN/Creatinine Ratio 17.1 Glucose 224 H Calcium 9.3 Troponin T High Sens 7 Troponin T Hi Sens 2 Hr 13 Radiography Chest X-Ray - ED: 2 View and Read by ED Physician (Normal cardiac silhouette size. Lung parenchyma is normal. [place] is normal. Osseous structure reveals some chronic degenerative changes. There is no acute findings per my independent read.) Diagnostic Testing: Clinical Impression(s) from Imaging Studies Chest X-Ray 06/01/25 16:09 IMPRESSION: No acute cardiopulmonary disease. Reading Location: [facility] EKG Initial EKG: Attestation: I personally reviewed and interpreted this EKG as follows: Interpretation: Sinus Tachycardia (Sinus tachycardia rate of 134 otherwise unremarkable. IN interval 264 ms per cures duration 98 ms. QT duration 204 ms. [place] is normal.) Discharge Plan Triage Chief Complaint: Chest Pain ED Provider: Tano Serrano Dx/Rx/DC Orders Clinical Impression: Intermittent chest pain, Sinus tachycardia, Diabetes type 2, controlled Instructions: ED About Arrhythmias, ED Chest Pain, Noncardiac, ED Chest Pain, Uncertain Cause Prescriptions: No Action atorvastatin 20 mg tablet 20 mg PO DAILY lisinopril 10 mg tablet 10 mg PO DAILY metformin 500 mg tablet 2,000 mg PO DAILY sitagliptin phosphate 100 MG tablet 100 mg PO DAILY empagliflozin 25 MG tablet 25 mg PO DAILY Primary Care Provider: Ceferino Freeman Referrals: Ceferino Freeman MD [Primary Care Provider, Family Practice] - 1 Week Khris Slaughter MD [Med Staff - Active Staff, Cardiology] - 1 Week Print Language: Telugu Disposition Disposition: Home, Self Care
[2025-06-01 16:30] LABS: Anion Gap 13 (5-15); BUN 18 mg/dL (4-19); BUN/Creat Ratio 17.1 RATIO (10-20); Calcium,Total 9.3 mg/dL (7.6-11.0); Carbon Dioxide 25.1 mmol/L (21.0-32.0); Chloride 99 mmol/L (98-108); Estimated Creatinine Clearance 82.79 ml/min (50-250); Glucose 224 mg/dL (70-99); Potassium 4.0 mmol/L (3.3-5.1); Troponin T High Sensitivity 7 ng/L (<=22)
[2025-06-01 17:06] LABS: D-Dimer Quantitative (DVT/PE) 0.34 FEU/ug/m (0.27-0.49)
[2025-06-01 18:40] LABS: Troponin T High Sens 2 HR 13 ng/L (<=22)
== END 2025-06-01 20:19 | disposition home or self-care (01) ==
PROVIDERS: Emergency Provider Emergency Medicine; PCP Family Medicine; Visit Provider Emergency Medicine
DX: R07.9 Chest pain, unspecified (principal); E11.9 Type 2 diabetes mellitus without complications; R20.2 Paresthesia of skin; R00.0 Tachycardia, unspecified
CPT/HCPCS: 71045; 80048; 84439; 84443; 84484; 85025; 85379; 93005; 99283; A4216